=== PATIENT | female | born 1950 | race Caucasian/White ===

== ENCOUNTER → 2020-12-26 | Outpatient (CLI) | payer OTHER ==
[~2020-12-26] MED LIST: ASCO100018 PO; ASPI81TA45 PO; ATOR10TA9 PO; BIOT25005 PO; CALC-112 PO; LORA10TA75 PO; LOSA25TA25 PO; MV-M1TAB35 PO; OMEG1CAP34 PO
[2020-12-26 10:24] LABS: ALBUMIN 3.7 g/dL (3.4-5.0); ANION GAP 3 mmol/L (5-15); CALCIUM 9.7 mg/dL (8.5-10.1); CHLORIDE 105 mmol/L (98-107)
[2020-12-26 10:27] LABS: ALANINE AMINOTRANSFERASE 26 U/L (12-78); ALKALINE PHOSPHATASE 74 U/L (45-117); CREATININE 0.64 mg/dL (0.55-1.02); TOTAL PROTEIN 7.1 g/dL (6.4-8.2)
== END | disposition home or self-care (01) ==
LOC: STAR 09:20
PROVIDERS: ATTEND Surgery
DX: Z01.812 Encounter for preprocedural laboratory examination (principal); Z20.822 Contact with and (suspected) exposure to COVID-19; C50.412 Malignant neoplasm of upper-outer quadrant of left female breast
CPT/HCPCS: 36415; 80053; 87635; 93005

== ENCOUNTER 2020-12-30 05:56 | Day surgery (SDC) | payer OTHER ==
[2020-12-26 10:12] VITALS: BP 137/80
[~2020-12-30] VITALS: Ht 157.5 cm; Wt 50.7 kg
[2020-12-30] MEDS ORDERED: LACTATED RINGERS 1,000 ML IV SCH (06:30)
[2020-12-30] MEDS ORDERED: CHLORHEXIDINE 15 ML UDC PO ONE (06:30)
[2020-12-30 06:43] VITALS: BP 137/80
[2020-12-30] MEDS ORDERED: BUPIVACAINE/PF 0.5% ONE (07:10)
[2020-12-30] MEDS ORDERED: ISOSULFAN BLUE 10 MG/ML, 5ML IV ONE ×2 (07:11→09:50)
[2020-12-30] MEDS ORDERED: FENTANYL PF 250 MCG/5ML ONE (08:49)
[2020-12-30] MEDS ORDERED: MIDAZOLAM 1 MG/ML, 2ML ONE (08:49)
[2020-12-30] MEDS ORDERED: PROPOFOL 10 MG/ML, 20ML ONE (09:17)
[2020-12-30] MEDS ORDERED: CEFAZOLIN 1,000 MG ONE (09:17)
[2020-12-30] MEDS ORDERED: ONDANSETRON 2MG/ML, 2ML ONE (09:17)
[2020-12-30] MEDS ORDERED: DIPHENHYDRAMINE 50 MG/ML, 1ML IVPush PRN (09:30)
[2020-12-30] MEDS ORDERED: METHOCARBAMOL 1,000 MG in DEXTROSE 5% 100 ML IV PRN (09:30)
[2020-12-30] MEDS ORDERED: FENTANYL PF 100 MCG/2ML IV PRN (09:30)
[2020-12-30] MEDS ORDERED: ONDANSETRON 2MG/ML, 2ML IVPush PRN (09:30)
[2020-12-30] MEDS ORDERED: HYDROmorphone 1 MG/ML, 1ML INJ IVPush PRN (09:30)
[2020-12-30] MEDS ORDERED: HYDROcodone/APAP 7.5-325MG/15ML UDC PO PRN (09:30)
[2020-12-30] MEDS ORDERED: LORazepam 2 MG/ML, 1ML IVPush PRN (09:30)
[2020-12-30] MEDS ORDERED: MEPERIDINE/PF 25MG/0.5ML IVPush PRN (09:30)
[2020-12-30] MEDS ORDERED: PROMETHAZINE 25 MG/ML, 1ML IVPush PRN (09:30)
[2020-12-30] MEDS ORDERED: HYDR-2214 PO (09:38)
[2020-12-30] MEDS ORDERED: EPINEPHRINE 1 MG/ML, 1ML INFIL ONE (10:07)
[2020-12-30] MEDS ORDERED: MEPERIDINE/PF 25MG/ML,1ML ONE (10:45)
[2020-12-30] MEDS ORDERED: hydrALAzine 20 MG/ML, 1ML IV PRN (11:00)
[2020-12-30] MEDS ORDERED: hydrALAzine 20 MG/ML, 1ML IV ONE (11:00)
[2020-12-30] MEDS ORDERED: hydrALAzine 20 MG/ML, 1ML ONE (11:01)
== END 2020-12-30 12:45 | disposition home or self-care (01) ==
LOC: OUT 05:56 → EDSTATUS 09:30 → OUT 12:45
PROVIDERS: ATTEND Surgery
DX: C50.412 Malignant neoplasm of upper-outer quadrant of left female breast (principal); I10 Essential (primary) hypertension; E78.5 Hyperlipidemia, unspecified; Z17.0 Estrogen receptor positive status [ER+]; Z87.891 Personal history of nicotine dependence; Z88.0 Allergy status to penicillin; Z88.8 Allergy status to other drugs, medicaments and biological substances; Z80.41 Family history of malignant neoplasm of ovary
CPT/HCPCS: 19301; 38525; 38792; 76098; 88305; 88307; 88342; A9541; J0171; J0360; J0690; J2175; J2250; J2405; J2704; J3010; J7120